=== PATIENT | male | born 1975 ===

== ENCOUNTER → 2017-04-21 09:20 | Day surgery (SDC) | payer OTHER ==
[~2017-04-21 09:20] MED LIST: Buffered Lidocaine 0.9% SYRIN* 5 ML/SYR SYRINGE INTRADERM ONE; Buffered Lidocaine 0.9% SYRIN* 5 ML/SYR SYRINGE ONE; Ketorolac INJ* 30 MG/ML 1 ML VIAL IV PRN; Ondansetron INJ* 2 MG/ML VIAL IV PRN; Oxymetazoline 0.05% NASAL SPR* 15 ML BTL ONE; Sodium Citrate/Citric Acid* 15 ML UDC ONE; Sodium Citrate/Citric Acid* 15 ML UDC PO ONE; fentaNYL* 50 MCG/ML 2 ML VIAL (100 MCG VIAL) IV PRN
[2017-04-21 13:50] VITALS: BP 127/87
--- NOTE | 2017-04-22 02:20 | OP ---
OPERATIVE REPORT: DATE OF PROCEDURE: 04/21/17 - [facility] DATE OF : 73 ATTENDING SURGEON: Yadiel Ashley MD TELEVISION ANNOUNCER: None. ANESTHESIOLOGIST: Harvinder Castro DO. ANESTHESIA: General. PRE-OP DIAGNOSIS: Deviated nasal septum. POST-OP DIAGNOSIS: Deviated nasal septum. SURGICAL PROCEDURE: Septoplasty. ESTIMATED BLOOD LOSS: Approximately 30 cc. SPECIMEN: Redundant septal cartilage of bone was discarded. 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 On exam in the office , he had severe restriction of the left nasal cavity due to leftward deviation of the quadrangular cartilage. More posteriorly, however, the patient had large septal spur impinging on the right nasal cavity. Having failed medical management, the patient was brought to the operating room for elective septoplasty. On 04/21/17, the patient was brought to the operating room, general anesthesia was induced and oral endotracheal tube was placed. The patient was draped and time-out was performed. Pledgets soaked in Afrin and 4% lidocaine were packed into both nasal cavities. Once adequate time had been allotted for vasoconstriction, 1% lidocaine with 1:200,000 epinephrine was then used to infiltrate the region of the columella and also both sides of the septal mucosa. A left hemitransfixion incisions were made with 15 blade. This enabled elevation of a mucoperichondrial flap on the left side. A 15-blade was then used to make a vertical incision through the quadrangular cartilage to provide access to the submucoperichondrial plane on the right. A right-sided mucoperichondrial flap was then elevated. At this point, a large piece of quadrangular cartilage was removed and set aside in saline to keep it well hydrated. A combination of through-cutting rongeur as well as a 4-mm osteotome and double-action scissors were used to resect significantly deviated portions of septal cartilage and bone. Once the resection was completed, the initial piece of quadrangular cartilage, which was removed was then morselized and it was placed back to the mucoperichondrial flaps and sutured to the position with a 4-0 plain gut. The left hemitransfixion incision was then closed with 4-0 chromic. Septal splints were then placed bilaterally and secured with a 4-0 Prolene through the septum and drip pad was applied. The was then returned to the care anesthesiologist, extubated and delivered to PACU in stable condition. [id number]/[facility] #: [id number] ALEX
== END | disposition home or self-care (01) ==
LOC: OR 09:20
PROVIDERS: ATTEND Otolaryngology
DX: J34.2 Deviated nasal septum (principal); Z88.0 Allergy status to penicillin
CPT/HCPCS: A9270-GY